=== PATIENT | female | born 1970 | race Caucasian/White ===

== ENCOUNTER 2020-12-08 06:18 | Day surgery (SDC) | payer MEDICAID ==
[2020-12-05 11:15] LABS: COVID AG,FIA SOURCE NASOPHARYNGEAL
[~2020-12-08] VITALS: Ht 160 cm; Wt 98.6 kg
[~2020-12-08 06:18] MED LIST: SODIUM CHLORIDE 0.9% 1,000 ML ONE
[2020-12-08] MEDS ORDERED: ALBUTEROL SULFATE 2.5 MG/0.5 ML NEB SOLUTION NEB ONE (06:19)
[2020-12-08] MEDS ORDERED: BENZOCAINE 20% 50 MCG/SPRAY 57 GM TP ONE (06:19)
[2020-12-08] MEDS ORDERED: LIDOCAINE 2% 30 ML JELLY TP ONE (06:19)
[2020-12-08] MEDS ORDERED: SODIUM CHLORIDE 0.9% 1,000 ML IV ONE (06:30)
[2020-12-08] MEDS ORDERED: MIDAZOLAM HCL 5 MG/ML VIAL ONE (07:47)
[2020-12-08] MEDS ORDERED: FentaNYL CITRATE PF 100 MCG/2 ML VIAL ONE (07:47)
[2020-12-08] MEDS ORDERED: MethylPREDNISolone SOD SUCC 125 MG/2 ML VIAL ONE (09:13)
[2020-12-08] MEDS ORDERED: MethylPREDNISolone SOD SUCC 125 MG/2 ML VIAL IVP ONE (09:15)
[2020-12-08] MEDS ORDERED: OXYGEN THERAPY IH SCH (20:00)
== END 2020-12-08 10:50 | disposition home or self-care (01) ==
LOC: SURGERY 06:18
PROVIDERS: ATTEND Internal Medicine Critical Care Medicine
DX: J38.4 Edema of larynx (principal); B37.0 Candidal stomatitis; J45.909 Unspecified asthma, uncomplicated; Z79.899 Other long term (current) drug therapy; Z98.890 Other specified postprocedural states; Z87.01 Personal history of pneumonia (recurrent)
CPT/HCPCS: 31623; 31624; 71045; 87015; 87070; 87101; 87205; 87206; 87220; 87426; 88108; 88184; 88185; 88312; C9803; J2250; J2930; J3010; J7030; J7613